=== PATIENT | male | born 1965 | race Caucasian/White ===

== ENCOUNTER 2018-08-16 07:51 | Emergency (ER) | payer OTHER ==
[2018-08-16] MEDS ORDERED: FLUORESCEIN SODIUM 1 MG STRIP OP ONE (07:55)
[2018-08-16] MEDS ORDERED: PROPARACAINE 0.5% 15 ML OPHT DROP ONE (07:55)
--- NOTE | 2018-08-16 07:58 | EDPHY ---
HPI/HX/ROS/PE/MDM Narrative: CHIEF COMPLAINT:Right eye scratch HPI: This patient is a 53-year-old male with history of GERD. He arrives today with his complaining of right eye pain secondary to scratching the eye with a stick yesterday while doing yard work. He was wearing sunglasses, but the stick went underneath and scratched him. His pain is persistent today and he has difficulty keeping the eye open due to discomfort. His vision is somewhat blurred due to tearing. No diplopia, blind spots, or other visual changes. He does not wear contacts. No history of eye surgery. No recent illness or trauma. REVIEW OF SYSTEMS: A comprehensive 10 system review of systems is otherwise negative aside from elements mentioned in the history of present illness and medical decision making. PMH: GERD. Orthopedic surgery (shoulder). SOCIAL HISTORY: , at bedside. Employed. Lives in [place]. PHYSICAL EXAM: General:Patient is alert, in no acute distress. ENT: Right eye: Pupil round, reactive to light. Exam with slit lamp and fluorescein shows corneal abrasion in the one o'clock position. No evidence of globe penetration. No foreign body. Left eye: Normal appearance. ENT inspection otherwise normal. Skin: Normal color. No rash. Warm and dry. Neuro: Oriented x3. Normal motor function. Normal sensory function. ED Course: 53 y/o male presents with corneal abrasion to his right eye after accidentally scratching his eye with a stick yesterday. He is otherwise well-appearing and has no other complaints. Plan to discharge home in good condition with Gentamicin drops and referral to ophthalmology should symptoms persist more than 48 hours. Follow up and return precautions discussed. He is comfortable with this plan. General Time Seen by Provider: 08/16/18 08:00 Initial Vital Signs: Initial Vital Signs Temperature (C) 36.7 C 08/16/18 07:54 Heart Rate 65 08/16/18 07:54 Respiratory Rate 18 08/16/18 07:54 Blood Pressure 140/77 H 08/16/18 07:54 O2 Sat (%) 96 08/16/18 07:54 O2 Delivery Mode Room Air Allergies/Adverse Reactions: Penicillins Allergy (Intermediate, Verified 08/16/18 07:54) SWELLING CHICKEN Allergy (Intermediate, Uncoded 03/20/12 14:26) HEADACHE TURKEY Allergy (Intermediate, Uncoded 03/20/12 14:26) HEADACHE Home Medications: Medication Instructions Recorded Omeprazole Magnesium [Prilosec Otc] 20 mg PO DAILY 03/08/12 Gentamicin 0.3% [Gentak 0.3% Opht 2 drops OP Q4H 4 Days opht.btl 08/16/18 Drops] Departure - Departure Disposition: Home, Routine, Self-Care Clinical Impression: Corneal abrasion Qualifiers: Encounter type: initial encounter Laterality: right Qualified Code(s): S05.01XA - Injury of conjunctiva and corneal abrasion without foreign body, right eye, initial encounter Condition: Good Instructions: Gentamicin (Into the eye), Corneal Abrasion (ED) Additional Instructions: If symptoms do not resolve in 48 hours, please follow up with ophthalmology. You may try wearing sunglasses for relief as we discussed. Use Gentamicin antibiotic drops as prescribed. Return to the emergency department for severe pain, double vision, blind spots, or other changes in your vision, or other worsening of condition or further concerns. Referrals: Christiano Petersen [Primary Care Provider] - As per Instructions Mary Scott MD [Medical Doctor] - As per Instructions Prescriptions: Gentamicin 0.3% [Gentak 0.3% Opht Drops] 2 drops OP Q4H 4 Days opht.btl Report Scribed for: Yao Villa Report Scribed by: Jami Oakes Date of Report: 08/16/18 Time of Report: 07:59 Physician Review and Approval Statement: Portions of this note were transcribed by an ED scribe. I personally performed the history, physical exam, and medical decision making; and confirm the accuracy of the information in the transcribed note.
[2018-08-16 08:05] VITALS: BP 140/77
== END 2018-08-16 08:27 | disposition home or self-care (01) ==
DX: S05.01XA Injury of conjunctiva and corneal abrasion without foreign body, right eye, initial encounter (principal); Y93.H2 Activity, gardening and landscaping